=== PATIENT | female | born 1950 | race Two or more races ===

== ENCOUNTER 2017-07-11 10:57 | Outpatient (CLI) | payer OTHER | END 2017-07-11 11:06 | disposition home or self-care (01) | LOC: RAD 501 10:57 | DX: M54.5 Low back pain (principal) ==

== ENCOUNTER 2017-12-08 12:59 | Outpatient (CLI) | payer OTHER | END 2017-12-08 13:15 | disposition home or self-care (01) | LOC: RAD 12:59 → MRI 13:15 | DX: M54.5 Low back pain (principal); M25.561 Pain in right knee; M25.562 Pain in left knee | CPT/HCPCS: 73718 ==

== ENCOUNTER 2017-12-28 12:57 | Outpatient (CLI) | payer OTHER | END 2017-12-28 13:03 | disposition home or self-care (01) | LOC: NUCLEAR 12:57 | DX: M85.9 Disorder of bone density and structure, unspecified (principal); M81.0 Age-related osteoporosis without current pathological fracture ==

== ENCOUNTER 2018-03-27 14:01 | Outpatient (CLI) | payer OTHER | END 2018-03-27 14:08 | disposition home or self-care (01) | LOC: RAD 14:01 | DX: M54.5 Low back pain (principal) ==

== ENCOUNTER 2022-07-28 07:52 | Outpatient (CLI) | payer OTHER | END 2022-07-28 07:53 | disposition home or self-care (01) | LOC: RX STUDY 07:52 | PROVIDERS: ATTEND General Practice | DX: R13.10 Dysphagia, unspecified (principal) ==